=== PATIENT | male | born 1975 | race Caucasian/White ===

== ENCOUNTER → 2022-03-29 09:11 | Outpatient (CLI) | payer BC, SELFPAY ==
[2022-03-29 09:58] LABS: Basophils # 0.2 K/mm3 (0-0.2); Basophils % 1.8 % (0.1-2.0); Eosinophils # 0.3 K/mm3 (0.0-0.4); Eosinophils % 3.5 % (0.1-12.0); Hematocrit 46.3 % (42.0-52.0); Hemoglobin 14.9 g/dL (14.1-18.0); Lymphocytes # 2.4 K/mm3 (0.7-4.5); Lymphocytes % 24.7 % (10-50); Mean Corpuscular HGB Conc 32.2 g/dL (31.8-35.4); Mean Corpuscular Hemoglobin 26.5 pg (27.0-31.2); Mean Corpuscular Volume 82.1 fl (80-94); Mean Platelet Volume 8.3 fl (7.4-10.4); Monocytes # 0.5 K/mm3 (0.1-1.0); Monocytes % 5.1 % (1.7-9.3); Neutrophils # 6.3 K/mm3 (1.8-7.8); Neutrophils % 64.9 % (37.0-80.0); Platelet Count 289 K/mm3 (142-424); Red Blood Count 5.64 M/mm3 (4.60-6.20); Red Cell Distribution Width 14.9 % (11.5-17.5); White Blood Count 9.8 K/mm3 (4.8-10.8)
[2022-03-29 10:00] LABS: Hemoglobin A1C 6.5 % (4.0-6.0)
[2022-03-29 10:24] LABS: Chloride 106 mmol/L (98-107); Potassium 4.9 mmoL/L (3.5-5.1); Sodium 141 mmol/L (136-145)
[2022-03-29 10:26] LABS: Alanine Aminotransferase 23 U/L (12-78); Aspartate Amino Transferase 24 U/L (17-59); Blood Urea Nitrogen 14 mg/dl (9-20); Estimated Glomerular Filt Rate 105 ml/min (>60); GFR (African American) 126 ML/MIN (>60)
[2022-03-29 10:27] LABS: Albumin Level 4.4 g/dl (3.5-5.0); Albumin/Globulin Ratio 1.3 (1.1-1.8); Alkaline Phosphatase 102 U/L (38-126); Anion Gap 10.9 mEq/L (5-15); Bilirubin,Total 0.6 mg/dl (0.2-1.3); Calcium 9.1 mg/dl (8.4-10.2); Carbon Dioxide 29 mmol/L (22.0-30.0); Chol/HDL Ratio 3.7 (1-3.5); Cholesterol 161 mg/dl (140-200); Globulin 3.5 g/dL (1.3-3.2); Glucose 90 mg/dl (74-100); HDL Cholesterol 44 mg/dl (40-60); Total Protein,Serum 7.9 g/dl (6.3-8.2); Triglycerides 69 mg/dl (30-150); VLDL Cholesterol 14 mg/dL (0-40)
[2022-03-29 10:38] LABS: Direct LDL Cholesterol 95.03 mg/dL (100-129)
[2022-03-29 10:58] LABS: Thyroid Stimulating Hormone 1.28 uIU/mL (0.465-4.68)
== END ==
PROVIDERS: PCP Family Medicine; Visit Provider Family Medicine
DX: R53.83 Other fatigue (principal); R73.09 Other abnormal glucose
CPT/HCPCS: 36415; 80053; 80061; 83036; 84443; 85025

== ENCOUNTER → 2022-10-18 08:03 | Outpatient (CLI) | payer BC, SELFPAY ==
[2022-10-18 09:11] LABS: Hemoglobin A1C 5.5 % (4.0-6.0)
[2022-10-18 09:30] LABS: Chloride 102 mmol/L (98-107); Potassium 5.1 mmoL/L (3.5-5.1)
[2022-10-18 09:33] LABS: Alanine Aminotransferase 25 U/L (12-78); Albumin Level 3.9 g/dl (3.5-5.0); Albumin/Globulin Ratio 1.1 (1.1-1.8); Alkaline Phosphatase 121 U/L (38-126); Aspartate Amino Transferase 22 U/L (17-59); Bilirubin,Total 0.8 mg/dl (0.2-1.3); Blood Urea Nitrogen 18 mg/dl (9-20); Calcium 9.8 mg/dl (8.4-10.2); Carbon Dioxide 27 mmol/L (22.0-30.0); Cholesterol 179 mg/dl (140-200); Estimated Glomerular Filt Rate 91 ml/min (>60); GFR (African American) 110 ML/MIN (>60); Globulin 3.5 g/dL (1.3-3.2); Glucose 81 mg/dl (74-100); Total Protein,Serum 7.4 g/dl (6.3-8.2); Triglycerides 61 mg/dl (30-150); VLDL Cholesterol 12 mg/dL (0-40)
[2022-10-18 09:34] LABS: HDL Cholesterol 45 mg/dl (40-60)
[2022-10-18 09:44] LABS: Direct LDL Cholesterol 107.46 mg/dL (100-129)
[2022-10-18 10:59] LABS: Anion Gap 15.1 mEq/L (5-15); Sodium 139 mmol/L (136-145)
== END ==
PROVIDERS: PCP Family Medicine; Visit Provider Family Medicine
DX: E11.9 Type 2 diabetes mellitus without complications (principal); E66.9 Obesity, unspecified
CPT/HCPCS: 36415; 80053; 80061; 83036

== ENCOUNTER 2023-02-21 19:29 | Emergency (ER) | payer BC, SELFPAY ==
[2023-02-21] VITALS (7 sets, daily range): BP systolic 137–165; BP diastolic 87–109; PULSE 78–118; RESP 16–20; TEMP 36.4–36.7; O2SAT 97–99; BMI 50.1
--- NOTE | 2023-02-21 19:56 | ECG_ITS ---
APPROVED REPORT Exam: Resting ECG HR:82 bpm ECG Measurements Heart Rate 82 AXES CA 135 P 21 QRSd 110 QRS -26 QT 352 T 17 QTc 391 Conclusion SINUS RHYTHM BORDERLINE LEFT AXIS DEVIATION [QRS AXIS < -20] BORDERLINE ECG UNCONFIRMED REPORT Electronically signed by : Rigo Nowak MD 02/22/2023 08:19:40
--- NOTE | 2023-02-21 19:58 | ED_ITS ---
Discharge Plan Disposition Patient Disposition: Home, Self-Care Prescriptions Prescriptions: New loperamide 2 mg capsule 2 mg PO Q6H PRN (Reason: loose stool) 5 Days Qty: 20 0RF Rx Instructions: Please take 4 mg initially, followed by 2 mg after each loose stool, maximum 16 mg/day ondansetron 4 mg tablet,disintegrating 4 mg PO Q6H PRN (Reason: nausea and vomiting) 5 Days Qty: 20 0RF Referrals Follow up/Referrals: Josue Lawson [Primary Care Provider] - See instructions Activity Restrictions/Add. Instructions Additional Instructions/Restrictions: Your symptoms are most likely secondary to Ozempic side effect no other emergent medical condition identified or concerns at this moment please return to the emergency department any significant worsening of your symptoms such as abdominal pain or other concerns. Clinical Impressions Clinical Impression: Dehydration, Medication side effect, Nausea vomiting and diarrhea, Vasovagal near-syncope Instructions Patient Instructions: DI for Diarrhea and Traveler's Diarrhea -- Adult, DI for Diarrhea and Traveler's Diarrhea -- Child, DI for Nausea -- Adult, DI for Nausea -- Child Discharge ED Provider: Ida [facility] Adult HPI General Chief complaint: Nausea/Vomiting/Diarrhea Stated complaint: vomiting,diarrhea,AMS Time Seen by Provider: 02/21/23 19:50 Mode of Arrival: Family Vehicle Source of Information: Patient Limitations: No Limitations Description of Symptoms (Recalled from ER Triage Doc. by RN): 47 yo male presents with CC of n/v/d x 1 week that has possibly caused dehydration despite attempts to rehydrate using pedialyte. A&ox4. Patient reports he took ozempic for several months, and missed 2 months of it till pharmacy could get it back in stock. Last week he restarted it at his former dose and has been nauseated and vomiting ever since. Afebrile. No abd pain. History of Present Illness HPI narrative: Patient is a morbidly obese 47-year-old male who has been recently restarted on Ozempic and has significant nausea vomiting and diarrhea for the past week and presents today with a near syncopal episode after he was retching and got very lightheaded and felt like he was in a pass out. The symptoms have since r esolved however he does still feel some weakness. No focal weakness no history of any cardiopulmonary disease in the past. No blood in his vomit or his bowels. Does have occasional abdominal cramping but no significant abdominal pain at the moment. No other medical problems that he is aware of. Related Data Previous Rx's Medication Instructions Recorded loperamide 2 mg capsule 2 mg PO Q6H PRN loose stool 5 days 02/21/23 #20 caps ondansetron 4 mg disintegrating 4 mg PO Q6H PRN nausea and 02/21/23 tablet vomiting 5 days #20 tabs Allergies Allergy/AdvReac Type Severity Reaction Status Date / Time No Known Allergies Allergy Verified 02/21/23 19:55 [facility] Disclaimer: The information contained in this section may have been updated after the patient was seen, as this information can be updated by other users. Social History Smoking Status: Unknown if ever smoked alcohol intake: never current occupational status: other Travel in the last 8 weeks: None ROS Obtained: Yes All systems reviewed & no additional complaints except as documented Physical Exam General General appearance: alert Respiratory Respiratory exam: Present normal lung sounds bilaterally; Absent respiratory distress Cardiovascular Cardiovascular exam: Present regular rate; Absent tachycardia Abdominal Exam Abdominal exam: Present soft; Absent distention or tenderness Neurological Exam Neurological exam: Present alert and oriented X3; Absent CN II-XII intact Medical Decision Making Geo Inquiry Pt receiving controlled substance: No Geo was queried for this patient: No Vital Signs: 02/21/23 19:40 02/21/23 20:00 02/21/23 20:31 Temperature 97.6 F Temperature Source Oral Pulse Rate 89 78 Pulse Rate [Right Brachial] 118 H Respiratory Rate 16 20 20 Blood Pressure 137/95 H 153/104 H Blood Pressure [Right Arm] 137/109 H Blood Pressure Mean 111 120 Blood Pressure Mean [Right Arm] 118 Blood Pressure Source [Right Arm] Automatic Cuff Blood Pressure Position [Right Arm] Sitting 02 Sat by Pulse Oximetry 98 97 98 Oxygen Delivery Method Room Air Room Air Room Air 02/21/23 21:00 02/21/23 21:30 Temperature Temperature Source Pulse Rate 79 78 Pulse Rate [Right Brachial] Respiratory Rate 18 16 Blood Pressure 149/99 H 142/87 H Blood Pressure [Right Arm] Blood Pressure Mean 119 108 Blood Pressure Mean [Right Arm] Blood Pressure Source [Right Arm] Blood Pressure Position [Right Arm] 02 Sat by Pulse Oximetry 98 98 Oxygen Delivery Method Room Air Room Air Lab Data Lab results reviewed: Yes I reviewed the patient's lab results. Lab Results 02/21/23 19:40: WBC 17.2 H, RBC 6.77 H, Hgb 18.5 H, Hct 55.7 H, MCV 82.4, MCH 27.3, MCHC 33.1, RDW 14.7, Plt Count 339, MPV 8.5, Neut % (Auto) 75.9, Lymph % (Auto) 12.6, [place] % (Auto) 5.0, Eos % (Auto) 6.1, Baso % (Auto) 0.4, Neut # (Auto) 13.1 H, Lymph # (Auto) 2.2, [place] # (Auto) 0.9, Eos # (Auto) 1.1 H, Baso # (Auto) 0.1, Total Counted 100, Neutrophils % (Manual) 75, Lymphocytes % (Manual) 13, Monocytes % (Manual) 3, Eosinophils % (Manual) 9 H, Platelet Estimate Normal, RBC Morphology Not Reportable, Microcytosis 1+, Sodium 134 L, Potassium 4.2, Chloride 99, Carbon Dioxide 24, Anion Gap 15.2 H, BUN 15, Creatinine 0.90, Estimated Creat Clear 121, Estimated GFR 91, Est GFR ( Amer) 110, Glucose 140 H, Calcium 9.0, Magnesium 1.7, Total Bilirubin 0.9, AST 29, ALT 31, Alkaline Phosphatase 133 H, Total Protein 7.7, Albumin 4.3, Globulin 3.4 H, Albumin/Globulin Ratio 1.3, Lipase 116 02/21/23 19:40 02/21/23 19:40 Orders (Tests/Meds): ED MEDICATIONS Generic Name Dose Route Start Last Admin Trade Name Freq PRN Reason Stop Dose Admin Lactated Ringer's 1,000 mls @ 999 mls/hr 02/21/23 21:45 02/21/23 21:41 Lactated Ringer's 1000 Ml Bag IV 02/21/23 22:45 999 mls/hr .Q1H1M DHARMESH Administration Discontinued Medications Generic Name Dose Route Start Last Admin Trade Name Freq PRN Reason Stop Dose Admin Lactated Ringer's 1,000 mls @ 999 mls/hr 02/21/23 20:00 02/21/23 20:03 Lactated Ringer's 1000 Ml Bag IV 02/21/23 21:00 999 mls/hr .Q1H1M DHARMESH Administration Loperamide HCl 4 mg 02/21/23 21:35 02/21/23 21:41 Loperamide 2mg Capsule PO 02/21/23 21:36 4 mg ONCE ONE Administration Ondansetron HCl 4 mg 02/21/23 19:56 02/21/23 20:03 Ondansetron 4mg/2ml Vial IV 02/21/23 19:57 4 mg ONCE ONE Administration ORDERS Category Date Time Status CBC w/Auto Diff [Complete Blood Count Auto Diff] Stat Lab 02/21/23 19:40 Completed CMP [Comprehensive Metabolic Panel] Stat Lab 02/21/23 19:40 Completed Lipase Stat Lab 02/21/23 19:40 Completed Magnesium Stat Lab 02/21/23 19:40 Completed Medical Decision Narrative: 47-year-old male with nausea vomiting diarrhea and near syncope after a retching episode. His lightheadedness happened in the middle of 1 of these episodes while he was retching he did not have any symptoms before after this. This is almost certainly associated with neurocardiogenic or vasovagal near syncope in the setting of this strain. Abdominal exam is benign this is not consistent with a surgical emergency. Electrolyte abnormalities acute kidney injury on the differential we will check basic blood work and give IV fluids and Zofran and reassess. Will be my recommendation that he stop this medication given the significant side effects and otherwise will be treated supportively. EKG performed which I personally interpreted shows a ventricular rate of 82 sinus rhythm left axis deviation no acute ischemic changes noted no significant conduction abnormalities noted this is nondiagnostic from an emergency standpoint specifically no evidence of any pathologic arrhythmia in the setting of near syncope. Reassessment 9:37 PM labs interpreted there is a leukocytosis and hemoconcentration leukocytosis is nonspecific abdominal exam is benign this is not consistent with a surgical emergency. Patient feeling somewhat better but will require additional IV fluids second bolus has been administered ED obs ervation order was placed at 9:37 PM additionally patient requested diarrhea medication loperamide was administered to him in the emergency department as well. Zofran and loperamide prescription sent to his pharmacy in anticipation of possible discharge will reassess after his second liter of fluids. Reassessment 10:27 PM patient feeling much better second liter of fluids almost fully complete and he states he feels significantly better no ongoing symptoms such as nausea or abdominal pain his abdominal exam is benign again is almost certainly secondary to his Ozempic not consistent with a surgical emergency he has been advised to return to the emergency department with any worsening abdom inal pain or any other concerns. He was discharged in a significantly improved and stable condition. Critical Care Critical Care Time Critical Care Time: No
[2023-02-21] MEDS: LACTATED RINGERS 1000ML 1,000 ML 999 ML IV ×2 (20:03→21:41)
[2023-02-21] MEDS: ONDANSETRON 4MG/2ML VIAL 4 MG IV (20:03)
[2023-02-21 20:10] LABS: Basophils # 0.1 K/mm3 (0-0.2); Basophils % 0.4 % (0.1-2.0); Eosinophils # 1.1 K/mm3 (0.0-0.4); Eosinophils % 6.1 % (0.1-12.0); Hematocrit 55.7 % (42.0-52.0); Lymphocytes # 2.2 K/mm3 (0.7-4.5); Lymphocytes % 12.6 % (10-50); Mean Corpuscular HGB Conc 33.1 g/dL (31.8-35.4); Mean Corpuscular Hemoglobin 27.3 pg (27.0-31.2); Mean Corpuscular Volume 82.4 fl (80-94); Mean Platelet Volume 8.5 fl (7.4-10.4); Monocytes # 0.9 K/mm3 (0.1-1.0); Neutrophils # 13.1 K/mm3 (1.8-7.8); Neutrophils % 75.9 % (37.0-80.0); Platelet Count 339 K/mm3 (142-424); Red Blood Count 6.77 M/mm3 (4.60-6.20); Red Cell Distribution Width 14.7 % (11.5-17.5); White Blood Count 17.2 K/mm3 (4.8-10.8)
[2023-02-21 20:14] LABS: Chloride 99 mmol/L (98-107); Hemoglobin 18.5 g/dL (14.1-18.0); MANUAL DIFFERENTIAL MANUAL DIFFERENTIAL (MANUAL DIFF)
[2023-02-21 20:15] LABS: Potassium 4.2 mmoL/L (3.5-5.1); Sodium 134 mmol/L (136-145)
[2023-02-21 20:17] LABS: Alanine Aminotransferase 31 U/L (12-78); Alkaline Phosphatase 133 U/L (38-126); Anion Gap 15.2 mEq/L (5-15); Aspartate Amino Transferase 29 U/L (17-59); Bilirubin,Total 0.9 mg/dl (0.2-1.3); Blood Urea Nitrogen 15 mg/dl (9-20); Carbon Dioxide 24 mmol/L (22.0-30.0); Creatinine Clearance Estimated 121 mL/min (50-200); Estimated Glomerular Filt Rate 91 ml/min (>60); GFR (African American) 110 ML/MIN (>60); Lipase 116 U/L (23-300)
[2023-02-21 20:18] LABS: Albumin Level 4.3 g/dl (3.5-5.0); Albumin/Globulin Ratio 1.3 (1.1-1.8); Globulin 3.4 g/dL (1.3-3.2); Glucose 140 mg/dl (74-100); Magnesium 1.7 mg/dl (1.6-2.3); Total Protein,Serum 7.7 g/dl (6.3-8.2)
[2023-02-21 20:48] LABS: Eosinophils % 9 % (0-3); Lymphocytes % 13 % (10-50); Microcytosis 1+; Monocytes % 3 % (2-9); Neutrophils % 75 % (42-76); Platelet Estimate Normal; Total Cells Counted 100
--- NOTE | 2023-02-21 20:51 | PC.NURSE ---
pt requesting something to drink, water and ice chips provider.
[2023-02-21] MEDS: LOPERAMIDE 2MG CAPSULE 4 MG PO (21:41)
== END 2023-02-21 22:51 | disposition home or self-care (01) ==
PROVIDERS: Emergency Provider Student in an Organized Health Care Education/Training Program; PCP Family Medicine
DX: E86.0 Dehydration (principal); R55 Syncope and collapse; R11.2 Nausea with vomiting, unspecified; R19.7 Diarrhea, unspecified; T38.3X1A Poisoning by insulin and oral hypoglycemic [antidiabetic] drugs, accidental (unintentional), initial encounter
CPT/HCPCS: 80053; 83690; 83735; 85007; 85025; 93005; 96361; 96374; 99285; J2405